=== PATIENT | male | born 1975 | race Caucasian/White ===

== ENCOUNTER 2022-03-31 16:10 | Emergency (ER) | payer SELFPAY ==
[2022-03-31 16:14] VITALS: BP 131/89; PULSE 60; RESP 16; TEMP 36.9; O2SAT 100
[2022-03-31 16:19] VITALS: BP 131/89; PULSE 60; RESP 16; TEMP 36.9; O2SAT 100
--- NOTE | 2022-03-31 16:26 | ED.SKABFB ---
HPI - Skin/Abscess/Foreign Bdy General Chief complaint: Skin/Abscess/Foreign Body Stated complaint: RASH Time Seen by Provider: 03/31/22 16:18 Source: patient Mode of arrival: ambulatory Limitations: no limitations History of Present Illness HPI narrative: Patient presents today complaining of a pruritic rash to the bilateral lower legs, left inner wrist, and left buttock x2 days. He has tried calamine and hydrocortisone without relief. States he has been outside of his home and believes he may have poison danny, although, he does not know of any poison danny around his home. Related Data Allergies Allergy/AdvReac Type Severity Reaction Status Date / Time shellfish derived Allergy Unknown GI, RASH Verified 03/31/22 16:17 Review of Systems Review of Systems: CONSTITUTIONAL: Denies body aches, fever, chills, or sweats. EYES: Denies visual changes, redness, or discharge. ENT: Denies rhinorrhea, congestion, sore throat, or otalgia. CARDIOVASCULAR: Denies chest pain, palpitations, or edema. RESPIRATORY: Denies cough or dyspnea. GASTROINTESTINAL: Denies abdominal pain, nausea, vomiting, or diarrhea. GENITOURINARY: Denies dysuria or hematuria. SKIN: + Pruritic rash MUSCULOSKELETAL: Denies back pain, joint pain, or myalgia. NEUROLOGIC: Denies headache, numbness, tingling, or weakness. PSYCH: Denies depression or anxiety. PMFSH Comments At time of signature, I have reviewed and agree with nursing past medical, surgical, social and family history unless otherwise noted. Please see nursing chart for further information. There is no relevant family history pertinent to the presenting complaint Exam Narrative: GENERAL: Well-appearing, well-nourished, and in no acute distress. HEAD: Normocephalic, atraumatic. EYES: EOMI. No redness or drainage. Conjunctivae normal. ENT: Mucous membranes pink and moist. NECK: Normal AROM. . CHEST: No respiratory distress. EXTREMITIES: Normal range of motion. No edema. SKIN: Warm, dry. Capillary refill normal. Normal skin turgor. Multiple erythematous nodules over the bilateral lower legs, left inner wrist, and left buttock, consistent with insect bites, each with a punctate puncture site in the center. No induration or fluctuance noted. No drainage noted. NEURO: No focal deficits. Alert and oriented x3. Gait steady. PSYCH: Normal affect. No signs of depression or anxiety. Course Course Level of Care: Express Care Visit Vital Signs Vital signs: Vital Signs Temperature 98.5 F 03/31/22 16:14 Pulse Rate 60 03/31/22 16:14 Respiratory Rate 16 03/31/22 16:14 Blood Pressure 131/89 03/31/22 16:14 Pulse Oximetry 100 03/31/22 16:14 Oxygen Delivery Room Air 03/31/22 16:14 Temperature 98.5 F 03/31/22 16:19 Pulse Rate 60 03/31/22 16:19 Respiratory Rate 16 03/31/22 16:19 Blood Pressure 131/89 03/31/22 16:19 Pulse Oximetry 100 03/31/22 16:19 Oxygen Delivery Room Air 03/31/22 16:19 Reviewed. Pt has been instructed to follow up with his PCP regarding his elevated blood pressure today. MDM - Skin/Abscess/Foreign Bdy Differential Diagnosis Differential diagnosis: Likely abscess of skin or subcutaneous tissue, urticaria, cellulitis, insect bites, impetigo and contact dermatitis Critical Care Time Critical Care Time Critical Care Time: No Discharge Plan Discharge Clinical Impression: Insect bites Qualifiers: Encounter type: initial encounter Site of insect bite: unspecified site Qualified Code(s): W57.XXXA - Bitten or stung by nonvenomous insect and other nonvenomous arthropods, initial encounter Patient Disposition: Home, Self-Care Condition: Stable Instructions: Insect Bite or Sting (ED) Additional Instructions: Your symptoms are likely due to insect bites. Use the triamcinolone as prescribed. Follow-up with your PCP in 1 week if symptoms are not improving, or sooner if symptoms worsen. Use bug spray outside to help prevent insect bites.
== END 2022-03-31 16:38 | disposition home or self-care (01) ==
PROVIDERS: Emergency Provider Nurse Practitioner
DX: S80.862A Insect bite (nonvenomous), left lower leg, initial encounter (principal); S80.861A Insect bite (nonvenomous), right lower leg, initial encounter; S60.862A Insect bite (nonvenomous) of left wrist, initial encounter; S30.860A Insect bite (nonvenomous) of lower back and pelvis, initial encounter; W57.XXXA Bitten or stung by nonvenomous insect and other nonvenomous arthropods, initial encounter
CPT/HCPCS: 99203; G0463

== ENCOUNTER 2023-05-25 11:43 | Emergency (ER) | payer OTHER, SELFPAY ==
--- NOTE | ~2023-05-25 | XR_ITS ---
EXAMINATION: XR hand RT min 3V DATE: 05/25/2023 12:19 INDICATION: Hand caught in a lift with lacerations at the second-fourth digits. TECHNIQUE: Posteroanterior, oblique and lateral views of the right hand were obtained. COMPARISON: None. FINDINGS: The previously acute mid diaphyseal fracture of the right fifth metacarpal has healed with 30 degrees residual palmar angulation. Alignment is otherwise normal. No acute fractures identified. Mild polya rticular osteoarthritis at the first carpometacarpal, first-third metacarpophalangeal, first interpha langeal and second and third distal interphalangeal joints. Laceration is seen at the ulnar side of t he head of the right third middle phalanx. There is a minute metallic foreign body projecting along t he level of the skin surface dorsal to the base of the fourth distal phalanx along the proximal florencia n of the fingernail. Tiny focus of soft tissue gas dorsal to the second middle phalanx and more promi nent soft tissue gas at the palmar aspect of the third middle phalanx. IMPRESSION: 1. Old healed right fifth metacarpal fracture deformity. No acute osseous abnormality. 2. Minute metallic foreign body at or near the skin surface along the proximal margin of the fingerna il of the fourth distal phalanx. 3. Mild polyarticular osteoarthritis. Reviewed, dictated and finalized at location A. IMPRESSION: 1. Old healed right fifth metacarpal fracture deformity. No acute osseous abnor mality. 2. Minute metallic foreign body at or near the skin surface along the proximal margin of the fingernail of the fourth distal phalanx. 3. Mild polyarticular osteoarthritis.
[2023-05-25 11:56] VITALS: PULSE 74; RESP 16; TEMP 36.8; O2SAT 100
--- NOTE | 2023-05-25 11:58 | ED.UPPEXIN ---
HPI - Extremity Injury (Upper) General Chief Complaint: Extremity Injury, Upper Stated Complaint: FINGER INJURY Time Seen by Provider: 05/25/23 11:58 Source: patient Mode of arrival: ambulatory Limitations: no limitations History of Present Illness HPI narrative: 48 yo M presents with laceration to R middle finger. Also has skin flap to R index finger. 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 Tetanus UTD. ROM intact. Is concerned laceration needs suture. Also states may have seen bone . All systems reviewed and negative except as noted above. Related Data Allergies Allergy/AdvReac Type Severity Reaction Status Date / Time shellfish derived Allergy Unknown GI, RASH Verified 05/25/23 11:51 Review of Systems Review of Systems: CONSTITUTIONAL: Denies fever, chills, or sweats. EYES: Denies visual changes, redness, or discharge. ENT: Denies rhinorrhea, congestion, sore throat, or otalgia. CARDIOVASCULAR: Denies chest pain, palpitations, or edema. RESPIRATORY: Denies cough or dyspnea. GASTROINTESTINAL: Denies abdominal pain, nausea, vomiting, or diarrhea. GENITOURINARY: Denies dysuria or hematuria. SKIN: Denies rash or itching. Reports laceration to R index and middle finger. MUSCULOSKELETAL: Denies back pain, joint pain, or myalgia. NEUROLOGIC: Denies headache, numbness, or weakness. PSYCHIATRIC: Denies anxiety or depression. All other systems reviewed are negative, except as documented in HPI. PMFSH Comments At time of signature, agree with nursing past medical, surgical, social and family history. There is no relevant family history pertinent to the presenting complaint. Exam Narrative: GENERAL: This is a well-nourished, well-developed patient, in no apparent distress. HEAD: normocephalic, atraumatic. EYES: PERRL. Sclera clear/white. Vision is grossly intact. EARS: External ears normal NOSE: External nose normal NECK: Neck supple, non-tender without lymphadenopathy, masses or thyromegaly. CARDIOVASCULAR: Regular rate and rhythm without murmurs, gallops, or rubs. RESPIRATORY: Clear to auscultation. Breath sounds equal bilaterally. No wheezes, rales, or rhonchi. SKIN: warm, Dry, with no suspicious lesions or rash, good texture and turgor. Skin flap laceration to palmar aspect right index finger at the PIP. 1.5 cm laceration to right middle finger palmar aspect near the PIP. Range of motion intact. Normal strength. No concern for tendon involvement. No deformity noted. NEURO: awake, alert, and oriented to person, place and time. There were no obvious focal neurologic abnormalities. EXTREMITIES: No joint tenderness, effusion, or edema noted. Course Course Level of Care: Express Care Visit Vital Signs Vital signs: Vital Signs Temperature 36.8 C 05/25/23 11:56 Pulse Rate 74 05/25/23 11:56 Respiratory Rate 16 05/25/23 11:56 Pulse Oximetry 100 05/25/23 11:56 Temperature 36.8 C 05/25/23 11:56 Pulse Rate 74 05/25/23 11:56 Respiratory Rate 16 05/25/23 11:56 Pulse Oximetry 100 05/25/23 11:56 Reviewed Procedures Laceration Laceration 1: Date: 05/25/23 Time: 13:10 Site: hand (middle) Side (If applicable): right Size (cm): 1.5 Description: flap and irregular Depth: simple, single layer Local Anesthetic: lidocaine 1% Amount of anesthesia used (mL): 6 Pre-repair: wound explored and irrigated ====== Skin Level ====== Skin layer closed with: nylon Size (cm): 5-0 Number of sutures: 8 Technique: simple, interrupted ====== Subcutaneous Layer ====== ====== Muscle Layer ====== ====== Tendon Layer ====== Dressing: Range of motion and neurovascularly intact pre and postprocedure. MDM - Extremity Injury (Upper) MDM Narrative Medical decision making narrative: Laceration to right middle fin
== END 2023-05-25 13:20 | disposition home or self-care (01) ==
PROVIDERS: Emergency Provider Nurse Practitioner Family; PCP Emergency Medicine
DX: S61.212A Laceration without foreign body of right middle finger without damage to nail, initial encounter (principal); W31.89XA Contact with other specified machinery, initial encounter; Y99.0 Civilian activity done for income or pay
CPT/HCPCS: 12001; 73130; 99213; G0463

== ENCOUNTER 2023-06-05 15:30 | Emergency (ER) | payer OTHER, SELFPAY ==
[2023-06-05 15:36] VITALS: BP 115/85; PULSE 66; RESP 16; TEMP 36.9; O2SAT 100
--- NOTE | 2023-06-05 15:38 | ED.WOUNDLAC ---
HPI - Wound/Laceration General Chief Complaint: Skin/Abscess/Foreign Body Stated Complaint: SUTURE REMOVAL Time Seen by Provider: 06/05/23 15:46 Source: patient and RN notes reviewed Mode of arrival: ambulatory Limitations: no limitations History of Present Illness HPI narrative: 48 year old male presents with concern for suture removal from the 3rd digit of the right hand. Reports on May 25 he had sutures placed. He reports the wound is healing fine, denies redness, drainage. Reports the digit is still small amount swollen without pain. He denies warmth or tenderness. Related Data Home Medications Medication Instructions Recorded Confirmed No Home Medications 06/05/23 06/05/23 Allergies Allergy/AdvReac Type Severity Reaction Status Date / Time shellfish derived Allergy Unknown GI, RASH Verified 06/05/23 15:42 Review of Systems Review of Systems: CONSTITUTIONAL: Denies malaise, chills, sweats, or fever. SKIN: Reports healing laceration with intact sutures to the 3rd digit of the right hand MUSCULOSKELETAL: Denies muscle skeletal pain NEUROLOGIC: Denies numbness, weakness All systems reviewed & are unremarkable except as noted in HPI and below PMFSH Comments At time of signature, agree with nursing past medical, surgical, social and family history. There is no relevant family history pertinent to the presenting complaint Exam Narrative: GENERAL: Well-appearing, well-nourished, and in no acute distress. HEAD: Normocephalic, atraumatic. EYES: PERRLA, conjunctivae clear ENT: Mucous membranes moist. NECK: Supple. No lymphadenopathy CHEST: Clear to auscultation. No respiratory distress. HEART: Regular rate and rhythm. SKIN: Warm, dry. Eight intact sutures noted to a healing wound on the 3rd digit of the right hand, wound is well approximated, no erythema, edema, induration NEURO: Alert and oriented x3. PSYCH: Normal mood and affect Course Course Emergency Course: Patient is aware of diagnosis, understands and agrees to treatment plan. Anticipatory guidance given. Patient agrees to follow-up as directed and is aware of reasons to seek care at the emergency department. Portions of this record may have been created with voice recognition software Level of Care: Express Care Visit Vital Signs Vital signs: Vital Signs Temperature 98.5 F 06/05/23 15:36 Pulse Rate 66 06/05/23 15:36 Respiratory Rate 16 06/05/23 15:36 Blood Pressure 115/85 06/05/23 15:36 Pulse Oximetry 100 06/05/23 15:36 Temperature 98.5 F 06/05/23 15:36 Pulse Rate 66 06/05/23 15:36 Respiratory Rate 16 06/05/23 15:36 Blood Pressure 115/85 06/05/23 15:36 Pulse Oximetry 100 06/05/23 15:36 Reviewed. MDM - Wound/Laceration MDM Narrative Medical decision making narrative: Verbal consent was obtained. Wound well approximated, no erythema, induration, or discharge noted. Eight completely removed in a sterile fashion. Patient tolerated procedure well, no complications. Patient advised to look for and return for any signs of infection such as redness, swelling, discharge, or worsening pain. Differential Diagnosis Differential diagnosis: Likely laceration, abrasion and avulsion of skin Critical Care Time Critical Care Time Critical Care Time: No Discharge Plan Discharge Clinical Impression: Encounter for removal of sutures Patient Disposition: Home, Self-Care Condition: Stable Instructions: Stitches Removal (ED) Additional Instructions: Keep wound clean and dry. Clean with soap and water daily. Do not clean with hydrogen peroxide. If any signs of infection such as redness, swelling, increasing pain, drainage of purulent discharge, streaks up your extremity develop, seek medical attention immediately. After sutures are removed, keep your scar out of the sun. You may use OTC silicone pad and/or scar massage with ointment (for 10-15 min a day) after one month. Talk
== END 2023-06-05 15:57 | disposition home or self-care (01) ==
PROVIDERS: Emergency Provider Nurse Practitioner; PCP Emergency Medicine
DX: S61.212D Laceration without foreign body of right middle finger without damage to nail, subsequent encounter (principal); X58.XXXD Exposure to other specified factors, subsequent encounter
CPT/HCPCS: 99211; G0463

== ENCOUNTER 2025-03-06 10:34 | Emergency (ER) | payer SELFPAY ==
[2025-03-06 10:46] VITALS: BP 123/76; PULSE 77; RESP 16; TEMP 36.6; O2SAT 98
--- NOTE | 2025-03-06 11:10 | ED_ITS ---
HPI - Skin/Abscess/Foreign Bdy General Chief complaint: Skin/Abscess/Foreign Body Stated complaint: Poison [place] Time Seen by Provider: 03/06/25 11:10 Source: patient Mode of arrival: ambulatory Limitations: no limitations History of Present Illness HPI narrative: 50 y/o male presented for c/o red itchy rash to both legs. Onset 2 days. Says it is now spreading to the arms. Symptoms started after being outside in the [place]. Applying calamine lotion, which helps temporarily. Denies lip, tongue, or throat swelling, shortness of breath or wheezing. Denies changes to soap, detergent, lotion, or any other exposures. No one else in the house or any contacts with similar symptoms. Related Data Allergies Allergy/AdvReac Type Severity Reaction Status Date / Time shellfish derived Allergy Unknown GI, RASH Verified 03/06/25 10:45 Review of Systems Review of Systems: CONSTITUTIONAL: Denies body aches, fever, chills, or sweats. EYES: Denies visual changes, redness, or discharge. ENT: Denies rhinorrhea, congestion CARDIOVASCULAR: Denies chest pain, palpitations, or edema. RESPIRATORY: Denies cough or dyspnea. GASTROINTESTINAL: Denies abdominal pain, nausea, vomiting, or diarrhea. SKIN: per HPI MUSCULOSKELETAL: Denies back pain, joint pain, or myalgia. NEUROLOGIC: Denies headache, numbness, tingling, or weakness. PMFSH Comments At time of signature, I have reviewed and agree with nursing past medical, surgical, social and family history unless otherwise noted. Please see nursing chart for further information. There is no relevant family history pertinent to the presenting complaint Exam Narrative: GENERAL: Well-appearing HEAD: Normocephalic, atraumatic. EYES: conjunctivae clear, and EOMI. ENT: Mucous membranes moist. Oropharynx without edema, erythema or lesions. NECK: Supple. No lymphadenopathy CHEST: Clear to auscultation. HEART: Regular rate and rhythm. SKIN: Warm, dry. Scattered erythematous patches with vesicles noted to bilateral lower extremities. Few scattered patches to BUEs. Nontender, no drainage; c/w poison [place] as reported. NEURO: Alert and oriented x3. Course Course Emergency Course: Patient is aware of diagnosis, understands and agrees to treatment plan. Anticipatory guidance given. Patient agrees to follow-up as directed and is aware of reasons to seek care at the emergency department. Portions of this record may have been created with voice recognition software Level of Care: Express Care Visit Vital Signs Vital signs: Vital Signs Temperature 97.9 F 03/06/25 10:46 Pulse Rate 77 03/06/25 10:46 Respiratory Rate 16 03/06/25 10:46 Blood Pressure 123/76 03/06/25 10:46 Pulse Oximetry 98 03/06/25 10:46 Temperature 97.9 F 03/06/25 10:46 Pulse Rate 77 03/06/25 10:46 Respiratory Rate 16 03/06/25 10:46 Blood Pressure 123/76 03/06/25 10:46 Pulse Oximetry 98 03/06/25 10:46 Reviewed MDM - Skin/Abscess/Foreign Bdy MDM Narrative Medical decision making narrative: Discussed physical exam findings. Advised supportive measures and signs/symptoms to go to the ER. Pt is appropriate for outpt treatment and f/u. Differential Diagnosis Differential diagnosis: Likely abscess of skin or subcutaneous tissue, viral exanthem, dermatophytosis, urticaria, herpes zoster, cellulitis, eczema, insect bites, impetigo and contact dermatitis Discharge Plan Discharge Clinical Impression: Contact dermatitis Patient Disposition: Home Condition: Stable Instructions: Antibiotic Form, Poison [place] (ED) Additional Instructions: Take steroid as directed. Benadryl every 8 hours as needed for itching. Or you can take Claritin/Zyrtec according to package directions for itching You can apply IvyDry, calamine or Benadryl cream as needed for itching. Cool compresses to the sites of itching, avoid hot water. Avoid scratching to reduce the risk of infection Follow up with your primary care provider as needed in 1 week Go to the ER for worsening symptoms or concerns (lip, tongue, throat swelling/itching, trouble breathing etc) Patient Language: Greek Prescriptions: New methylprednisolone [Medrol (Jimmy)] 4 mg tablets,dose pack See Rx Instructions .ROUTE .COMPLEX Qty: 21 0RF Rx Instructions: orally per package directions Follow-up/Referrals: PHYSICIAN,PHARMACY TECHNICIAN ASSISTANT [Primary Care Provider] - Time of Disposition: 11:16
== END 2025-03-06 11:17 | disposition home or self-care (01) ==
PROVIDERS: Emergency Provider Nurse Practitioner Family
DX: L25.9 Unspecified contact dermatitis, unspecified cause (principal)
CPT/HCPCS: 99213; G0463